=== PATIENT | male | born 1955 | race Caucasian/White ===

== ENCOUNTER 2023-07-13 11:03 | Outpatient (AMB) | payer BC, SELFPAY ==
--- NOTE | 2023-07-13 11:26 | MHC.OFFWIV ---
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 denies chills, body aches, fevers. Patient Tobacco Use Status: Former Tobacco user Allergies No Known Allergies Allergy (Verified 07/13/23 11:28) Do you need a note to return to daycare/school/sports/work: No HPI HPI Comments History of Present Illness Details 1150 This is a 68-year-old male presenting to the emergency department with complaints of fatigue, malaise, myalgias, dry cough ongoing for 2-3 weeks, not improving. Patient reports it just does not seem to be going away. Patient denies fevers, chills, chest pain, shortness of breath, nausea, vomiting, headache, vision changes, dizziness, abdominal pain, recent sick contacts. Physical exam benign Concerns for viral illness versus bronchitis. Unlikely PE, pneumonia no signs of acute respiratory distress or ACS Plan doxycycline, prednisone, albuterol. Educated patient on diagnosis and treatment plan, answered all question, patient verbalizes understanding. At this time patient will be discharged home, advised to return with new or worsening symptoms. Educated on worrisome signs and symptoms and when to return. At this time I feel comfortable discharge home. [facility] Social History Patient Tobacco Use Status: Former Tobacco user Review of Systems Const All systems reviewed & are unremarkable except as noted in HPI and below Physical Exam Vital Signs: Last Vital Signs Temp 97.6 F 07/13/23 11:27 Pulse 67 07/13/23 11:27 BP 122/82 07/13/23 11:27 Pulse Ox 97 07/13/23 11:27 Oxygen Delivery Method Room Air 07/13/23 11:27 BMI result Body Mass Index 40.6 Vital signs stable Appearance: Alert.? Oriented X3.? No acute distress.? Head: Normocephalic, atraumatic, no step-offs or deformities Eyes: Pupils equal, round and reactive to light.? Neck: Normal inspection.? Neck supple.? CVS: Normal heart rate and rhythm.? Pulses normal.? Respiratory: No respiratory distress.? Breath sounds normal.? Abdomen: Soft and nontender.? Skin: Skin warm and dry.? Normal skin color.? Normal skin turgor.? Extremities: No lower extremity edema.? No calf ttp. 5/5 strength to bilateral upper and lower extremities Neuro: Oriented X 3.? No motor deficit.? No sensory deficit. CN 2-12 intact Results AMB Rapid Strep AMB Rapid Strep Negative Last Edit by JACQUES Santana on 07/13/23 11:45 Results Reviewed Results Reviewed: Laboratory Last Values Strep Scn Rapid Clinic Negative 07/13/23 11:44 Assessment & Plan Assessment & Plan (1) Viral illness: Code(s): B34.9 - Viral infection, unspecified (2) Bronchitis: Code(s): J40 - Bronchitis, not specified as acute or chronic Plan Take your medications as prescribed. If you were prescribed antibiotics today, it is important that you take your medication to their entirety, do not skip any doses, do not finish them early. Follow-up with your primary care provider this week. Return to the emergency department with new or worsening symptoms. Such as fevers, chills, chest pain, shortness of breath, nausea, vomiting, dizziness, headache, vision changes, lethargy In case of emergency call 911 Orders: Orders AMB Rapid Strep Screen Today Z13.9 - Encounter for screening, unspecified Medications: New doxycycline hyclate 100 mg PO BID 14 caps 0RF 7 days prednisone 40 mg (2 x 20 mg) PO DAILY 10 tabs 0RF 5 days albuterol sulfate 90 mcg/actuation 2 puffs inhalation Q6H PRN 6.7 grams 0RF shortness of breath or wheezing Coding Level of Care Code Est Pt Level 3 (86488) Diagnoses Viral illness B34.9 Bronchitis J40
[2023-07-13 11:27] VITALS: BP 122/82; PULSE 67; TEMP 36.4; O2SAT 97; BMI 40.6
== END 2023-07-13 15:27 | disposition home or self-care (01) ==
PROVIDERS: PCP Family Medicine; Visit Provider Physician Assistant
DX: B34.9 Viral infection, unspecified (principal); J40 Bronchitis, not specified as acute or chronic; J02.9 Acute pharyngitis, unspecified
CPT/HCPCS: 87880; 99213

== ENCOUNTER 2024-09-29 09:53 | Outpatient (REF) | payer MEDICARE, SELFPAY ==
--- OUTSIDE RECORDS SUMMARY | 2024-09-29 10:46 | XMS_ITS | Patient Health Record ---
Author Organization [facility] Address [address] [facility] [place] [address] Care Team Providers Care Real Estate Director Name Role Phone Mukesh Rosas MD Primary Care Provider Rozina Deleon Unavailable [phone] Allergies Allergen (clinical drug ingredient) Drug/Non Drug Allergy documented on EMR Reaction Allergy Type Onset Date Status Adhesive Unknown Allergy Active Latex Latex Unknown Allergy Active Reason For Referral No Information Medications Medication SIG (Take, Route, Frequency, Duration) Notes Start Date End Date Status Physical Therapy . . . 2-3x/week for 3- 4 weeks 09/18/2023 Active Feldene 20 MG 1 capsule with food Orally Once a day for 30 day(s) 05/19/2023 Not-Taking Vitamin B-12 Injections Active Social History Tobacco Use: Social History Observation Description Date Details (start date - stop date) Former Smoker NA - NA Tobacco Use/Smoking Question Answer Notes Are you a: former smoker Additional Findings: Tobacco Non-User Current no n-smoker Alcohol Screen Question Answer Notes Did you have a drink contain ing alcohol in the past year? Yes How often did you have a dri nk containing alcohol in the past year? 2 to 3 times a week (3 points) Points 3 Interpretation Negative Tobacco use other than smoking: Question Answer Notes Are you an other tobacco user? No Problems Problem Type SNOMED Code ICD Code Onset Dates Problem Status W/U Status Risk Notes Problem Hammer toe (735.4) Active confirmed Encounters Encounter Location Date Provider Diagnosis [facility] [address] [place] [address] 11/18/2023 Rozina Stone [facility] [place] [address] [place] [address] 11/23/2023 Rozina Stone Plan Of Treatment Pending Test Test Name Order Date X ray : Foot, left 3V 12/26/2011 X ray : Foot, left 3V 05/19/2023 X ray : Foot, right 3V 05/19/2023 X ray : Foot, right 3V 12/26/2011 Insurance Providers Payer Name Payer Address Payer Phone Subscriber Number Group Number Insured Name Patient Relationship to Insured Coverage Start Date Coverage End Date [facility] [employer] [address] [place] [address] [phone] [id number] Louie Cortes Self - patient is the insured Medical (General) History Medical History History ICD Code Measles Mumps Chicken pox Cpap Sinus infection Surgical History Surgery Date(Month/Year) wisdom teeth extraction colonoscopy
--- OUTSIDE RECORDS SUMMARY | 2024-09-29 10:46 | XMS_ITS ---
Author Organization [facility] Address [address] [place] [address] Care Team Providers Care Brand Representative Name Role Phone Mukesh Rosas MD Primary Care Provider Unava ilable Rozina Stone Unavailable [phone] REASON FOR VISIT cx appt 12/03/23 Encounters Encounter Location Date Provider Diagnosis [facility] [place] [address] [facility] [place] [place] [address] 11/23/2023 Rozina Stone Plan Of Treatment No Information Progress Notes * Louie CORTES GDOB:1955 (68 yo M)Acc No.[id number]:11/23/2023 Patient:?Louie Cotres :1955???Age:68 Y???Sex:Male Address:[address] [facility], [facility] [place] [address] * true * Date:? Generated for Printi ng/Faxing/eTransmitting on:?09/29/2024 10:46 AM EDT
--- OUTSIDE RECORDS SUMMARY | 2024-09-29 10:46 | XMS_ITS ---
Author Organization [facility] Address [address] [facility] [place] [address] Care Team Providers Care Associate Chief Nurse Name Role Phone Ralph RIVERA, Mukesh Primary Care Provider Unava ilRozina Landaverde Unavailable [phone] Encounters Encounter Location Date Provider Diagnosis [address] [address] 11/30/2023 Rozina Stone Plan Of Treatment No Information Progress Notes * Louie CORTES GDOB:1955 (69 yo M)Acc No.[id number]:11/30/2023 Progress Note Patient:Louie BELLAMY Provider:?Rozina Stone DPM :1955???Age:68 Y???Sex:Male Alden e:11/30/2023 Address:[address] [place] [address], [facility] [id number] Pcp:Mukesh Rosas MD Subjective: * Chief Complaints: * ??? * Medical History:? Objective: * Vitals:? Assessment: Plan: * Treatment: * Images: * The named appointment provid er may or may not be the originator of this progress note, and it is not deemed complete until electronically signed by the appointment provider. Sign off status: Pending * Provider:?Rozina Stone DPM Date:? Generated for Printi marcus/Eliot/eTransmitting on:?09/29/2024 10:46 AM EDT
--- OUTSIDE RECORDS SUMMARY | 2024-09-29 10:46 | XMS_ITS ---
Author Organization [facility] Address [address] [place] [address] Care Team Providers Care Securities Compliance Examiner Name Role Phone Ralph RIVERA, Mukesh Primary Care Provider Unava ilRozina Landaverde Unavailable [phone] Encounters Encounter Location Date Provider Diagnosis [address] [address] 12/03/2023 Rozina Stone Plan Of Treatment No Information Progress Notes * Louie CORTES GDOB:1955 (69 yo M)Acc No.[id number]:12/03/2023 Progress Notes Patient:Louie BELLAMY Provider:?Rozina Stone DPM :1955???Age:68 Y???Sex:Male Alden e:12/03/2023 Address:[address] [place] [address], [facility] [phone] Pcp:Mukesh Rosas MD Subjective: * Chief Complaints: * ??? * Medical History:? Objective: * Vitals:? Assessment: Plan: * Treatment: * Images: * The named appointment provid er may or may not be the originator of this progress note, and it is not deemed complete until electronically signed by the appointment provider. Sign off status: Pending * Provider:?Rozina Stone DPM Date:? Generated for Josuei marcus/Eliot/eTransmitting on:?09/29/2024 10:46 AM EDT
== END 2024-09-29 09:54 | disposition home or self-care (01) ==
LOC: HO.BBR 09:53
PROVIDERS: PCP Family Medicine; Visit Provider Internal Medicine
DX: Z13.89 Encounter for screening for other disorder (principal)

== ENCOUNTER 2024-10-28 12:55 | Outpatient (REF) | payer MEDICARE, SELFPAY ==
--- OUTSIDE RECORDS SUMMARY | 2024-10-28 13:22 | XMS_ITS ---
Author Organization [facility] Address [address] [place] [address] Care Team Providers Care Deputy Sheriff Name Role Phone Ralph RIVERA, Mukesh Primary Care Provider Unava ilRozina Landaverde Unavailable [phone] Encounters Encounter Location Date Provider Diagnosis [address] [address] 12/03/2023 Rozina Stone Plan Of Treatment No Information Progress Notes * Louie CORTES GDOB:1955 (69 yo M)Acc No.[id number]:12/03/2023 Progress Notes Patient:Louie BELLAMY Provider:?Rozina Stone DPM :1955???Age:68 Y???Sex:Male Alden e:12/03/2023 Address:[address] [place] [address], [facility] [place] [id number] Pcp:Mukesh Rosas MD Subjective: * Chief Complaints: [...] Stone DPM Date:? Generated for Josuei marcus/Eliot/eTransmitting on:?10/28/2024 01:22 PM EDT
== END 2024-10-28 12:56 | disposition home or self-care (01) ==
LOC: HO.BBR 12:55
PROVIDERS: PCP Family Medicine; Visit Provider Internal Medicine
DX: Z13.89 Encounter for screening for other disorder (principal)

== ENCOUNTER 2024-11-25 10:55 | Outpatient (REF) | payer MEDICARE, SELFPAY ==
--- OUTSIDE RECORDS SUMMARY | 2023-12-03 07:30 | XMS_ITS ---
Author Organization [facility] paolo [place]err[place] Address [address] [facility] [place] [address] Care Team Providers Care Pathology Manager Name Role Phone Ralph RIVERA, Mukesh Primary Care Provider Unava ilRozina Landaverde Unavailable [phone] Encounters Encounter Location Date Provider Diagnosis [address] [address] 12/03/2023 Rozina Stone Plan Of Treatment No Information Progress Notes * Louie CORTES GDOB:1955 (69 yo M)Acc No.[id number]:12/03/2023 Progress Notes Patient: Louie LOPEZ Provider: Anthony Stone DPM :1955 A ge:68 Y S ex:Male Date:12/03/2023 Address:[address] [place] [address] [id number] Pcp:Mukesh Rosas MD Subjective: * Chief Complaints: * * Medical History: Objective: * Vitals: Assessment: Plan: * Treatment: * Images: * The named appointment provid er may or may not be the originator of this progress note, and it is not deemed complete until electronically signed by the appointment provider. Sign off status: Pending * Provider: Anthony Stone DPM Date: 12/03/2023 Generated for Jasmin velazquez/Eliot/Antransmitting on: 11/25/2024 11:33 AM EDT
== END 2024-11-25 10:56 | disposition home or self-care (01) ==
LOC: HO.BBR 10:55
PROVIDERS: PCP Family Medicine; Visit Provider Internal Medicine Medical Oncology
DX: Z13.89 Encounter for screening for other disorder (principal)

== ENCOUNTER 2025-01-18 10:50 | Outpatient (REF) | payer MEDICARE, SELFPAY ==
--- OUTSIDE RECORDS SUMMARY | 2023-11-13 08:00 | XMS_ITS ---
Author Organization [facility] Address [address] [facility] [place] [address] Care Team Providers Care Golf Teacher Name Role Phone Ralph RIVERA, Mukesh Primary Care Provider Unava ilable Rozina Stone Unavailable [phone] Fontenot Encounters Encounter Location Date Provider Diagnosis [facility] [address] [place] [address] 11/13/2023 Rozina Stone Plan Of Treatment No Information Progress Notes * Louie CORTES GDOB:1955 (69 yo M)Acc No.[id number]:11/13/2023 Progress Notes Patient: Louie LOPEZ Provider: Anthony Stone DPM :1955 A ge:68 Y S ex:Male Date:11/13/2023 Address:[address] [place] [address] [id number] Pcp:Mukesh Rosas MD Subjective: * Chief Complaints: [...] 0 11/13/2023 Generated for Jasmin velazquez/Eliot/Wandy on: 0 01/18/2025 12:47 PM EDT
--- OUTSIDE RECORDS SUMMARY | 2023-11-30 05:15 | XMS_ITS ---
Author Organization [facility] Address [address] [facility] [place] [place] [address] Care Team Providers Care Manager Documentation Name Role Phone Ralph RIVERA, Mukesh Primary Care Provider Unava ilRozina Landaverde Unavailable [phone] Encounters Encounter Location Date Provider Diagnosis [address] [address] 11/30/2023 Rozina Stone Plan Of Treatment No Information Progress Notes * Louie CORTES GDOB:1955 (69 yo M)Acc No.[id number]:11/30/2023 Progress Note Patient: Louie LOPEZ Provider: Anthony Stone DPM :1955 A ge:68 Y S ex:Male Date:11/30/2023 Address:[address] [place] [address] [id number] Pcp:Mukesh Rosas MD Subjective: * Chief Complaints: [...] 0 11/30/2023 Generated for Jasmin velazquez/Eliot/Antransmitting on: 0 01/18/2025 12:48 PM EDT
== END 2025-01-18 10:51 | disposition home or self-care (01) ==
LOC: HO.BBR 10:50
PROVIDERS: PCP Family Medicine; Visit Provider Internal Medicine Medical Oncology
DX: Z13.89 Encounter for screening for other disorder (principal)

== ENCOUNTER 2025-02-17 13:00 | Outpatient (REF) | payer MEDICARE, SELFPAY ==
--- OUTSIDE RECORDS SUMMARY | 2023-11-13 08:00 | XMS_ITS ---
Author Organization [facility] Address [address] [facility] [place] [address] Care Team Providers Care Market Research Specialist Name Role Phone Ralph RIVERA, Mukesh Primary Care Provider Unava ilable Rozina Stone Unavailable [phone] Fontenot Encounters Encounter Location Date Provider Diagnosis [facility] [address] [place] [address] 11/13/2023 Rozina Stone Plan Of Treatment No Information Progress Notes * Louie CORTES GDOB:1955 (69 yo M)Acc No.[id number]:11/13/2023 Progress Notes Patient: Louie LOPEZ Provider: Anthony Stone DPM :1955 A ge:68 Y S ex:Male Date:11/13/2023 Address:[address] [place] [address] [place] [id number] Pcp:Mukesh Rosas MD Subjective: * Chief Complaints: [...] DPM Date: 0 11/13/2023 Generated for Jasmin velazquez/Eliot/Wandy on: 1 01:22 PM EDT
--- OUTSIDE RECORDS SUMMARY | 2023-11-18 09:00 | XMS_ITS ---
Author Organization [facility] Address [address] [facility] [place] [address] Care Team Providers Care Hand Cigar Maker Name Role Phone Ralph RIVERA, Mukesh Primary Care Provider UnaRozina Brewster Unavailable [phone] Medications Medication SIG (Take, Route, Frequency, Duration) Notes Start Date End Date Status Physical Therapy . . . 2-3x/week; Durat ion: 3-4 weeks 09/18/2023 Active Feldene 20 MG 1 capsule with food Orally Once a day; Duration: 30 day(s) 05/19/2023 Not-Taking Vitamin B-12 Injections Active Encounters Encounter Location Date Provider Diagnosis [facility] [address] [place] [address] 11/18/2023 Rozina Stone Plan Of Treatment No Information Progress Notes * YOLETTE Louie GDOB:1955 (69 yo M)Acc No.[id number]:11/18/2023 Progress Notes Patient: Louie LOPEZ Provider: Anthony Stone DPM :1955 A ge:68 Y S ex:Male Date:11/18/2023 Address:[address] [place] [address], [phone] Pcp:Mukesh Rosas MD Subjective: [...] 0 11/18/2023 Generated for Jasmin velazquez/Eliot/Wandy on: 01:22 PM EDT
--- OUTSIDE RECORDS SUMMARY | 2023-11-30 05:15 | XMS_ITS ---
Author Organization [facility] [place] Address [address] [facility] [place] [address] Care Team Providers Care Lab Support Service Tech Name Role Phone Ralph RIVERA, Mukesh Primary Care Provider Unava ilRozina Landaverde Unavailable [phone] Encounters Encounter Location Date Provider Diagnosis [address] [address] 11/30/2023 Rozina Stone Plan Of Treatment No Information Progress Notes * oLuie CORTES GDOB:1955 (69 yo M)Acc No.[id number]:11/30/2023 Progress Note Patient: Louie LOPEZ Provider: Anthony Stone DPM :1955 A ge:68 Y S ex:Male Date:11/30/2023 Address:[address] [place] [address] [id number] Pcp:Mukesh Rosas MD Subjective: * Chief Complaints: [...] DPM Date: 0 11/30/2023 Generated for Jasmin velazquez/Eliot/eTransmitting on: 1 01:22 PM EDT
--- OUTSIDE RECORDS SUMMARY | 2023-12-03 07:30 | XMS_ITS ---
Author Organization [facility] pa[place] Address [address] [facility] [place] [address] Care Team Providers Care Physician Office Rep Name Role Phone Ralph RIVERA, Mukesh Primary Care Provider Unava ilRozina Landaverde Unavailable [phone] Encounters Encounter Location Date Provider Diagnosis [address] [address] 12/03/2023 Rozina Stone Plan Of Treatment No Information Progress Notes * Louie CORTES GDOB:1955 (69 yo M)Acc No.[id number]:12/03/2023 Progress Notes Patient: Louie LOPEZ Provider: Anthony Stone DPM :1955 A ge:68 Y S ex:Male Date:12/03/2023 Address:[address] [place] [address] [id number] Pcp:Mukesh Rosas MD Subjective: * Chief Complaints: [...] DPM Date: 0 12/03/2023 Generated for Jasmin velazquez/Eliot/eTransmitting on: 01:22 PM EDT
--- OUTSIDE RECORDS SUMMARY | 2025-02-17 13:23 | XMS_ITS | Patient Health Record ---
Author Organization [facility] Airam Serranoley Address [address] [place] [address] Care Team Providers Care Tractor Operator Helper Name Role Phone Mukesh Rosas MD Primary Care Provider UnaRozina Brewster Unavailable [phone] Allergies Allergen (clinical drug ingredient) Drug/Non Drug [...] W/U Status Risk Notes Problem Hammer toe (439724716) Hammer toe (735.4) Active confirmed Plan Of Treatment Pending Test Test Name Order Date X ray : Foot, left 3V 12/26/2011 X ray : Foot, left 3V 05/19/2023 X ray : Foot, right 3V 05/19/2023 X ray : Foot, right 3V 12/26/2011 Insurance Providers Payer Name Payer Address Payer Phone Subscriber Number Group Number Insured Name Patient Relationship to Insured Coverage Start Date Coverage End Date [facility] [id number] [place] [address] [phone] [id number] Louie Cortes Self - patient is the insured Medical (General) History Medical History History ICD Code Measles Mumps Chicken pox Cpap Sinus infection Surgical History Surgery Date(Month/Year) wisdom teeth extraction colonoscopy
== END 2025-02-17 13:01 | disposition home or self-care (01) ==
LOC: HO.BBR 13:00
PROVIDERS: PCP Family Medicine; Visit Provider Internal Medicine Medical Oncology
DX: Z12.39 Encounter for other screening for malignant neoplasm of breast (principal)

== ENCOUNTER 2025-03-24 09:58 | Outpatient (REF) | payer MEDICARE, SELFPAY ==
--- OUTSIDE RECORDS SUMMARY | 2023-11-13 07:00 | XMS_ITS ---
Author Organization [facility] Address [address] [facility] [place] [address] Care Team Providers Care Organ Builder Name Role Phone Ralph RIVERA, Mukesh Primary Care Provider Unava ilable Rozina Stone Unavailable [phone] Fontenot Encounters Encounter Location Date Provider Diagnosis [facility] [address] [place] [address] 11/13/2023 Rozina Stone Plan Of Treatment No Information Progress Notes * Louie CORTES GDOB:1955 (69 yo M)Acc No.[id number]:11/13/2023 Progress Notes Patient: Louie LOPEZ Provider: Anthony Stone DPM :1955 A ge:68 Y S ex:Male Date:11/13/2023 Address:[address] [place] [address] [place] [id number] Pcp:Mukesh Rosas MD Subjective: * Chief Complaints: * [address] Fontenot. * Medical History: Objective: * Vitals: Assessment: Plan: * Treatment: * Images: * The named appointment provid er may or may not be the originator of this progress note, and it is not deemed complete until electronically signed by the appointment provider. Sign off status: Pending * Provider: Anthony Stone DPM Date: 0 11/13/2023 Generated for Jasmin velazuqez/Eliot/Wandy on: 05/24/2024 11:49 AM EST
--- OUTSIDE RECORDS SUMMARY | 2023-11-18 08:00 | XMS_ITS ---
Author Organization [facility] Address [address] [facility] [place] [address] Care Team Providers Care Account Executive Healthcare Name Role Phone Ralph RIVERA, Mukesh Primary Care Provider UnaRozina Brewster Unavailable [phone] Medications Medication SIG (Take, Route, Frequency, Duration) Notes Start Date End Date Status Physical Therapy . . . 2-3x/week; Durat ion: 3-4 weeks 09/18/2023 Active Feldene 20 MG 1 capsule with food Orally Once a day; Duration: 30 day(s) 05/19/2023 Not-Taking Vitamin B-12 Injections Active Encounters Encounter Location Date Provider Diagnosis [facility] [address] [place] [address] 11/18/2023 Rozina Stone Plan Of Treatment No Information Progress Notes * YOLETTE Louie GDOB:1955 (69 yo M)Acc No.[id number]:11/18/2023 Progress Notes Patient: Louie LOPEZ Provider: Anthony Stone DPM :1955 A ge:68 Y S ex:Male Date:11/18/2023 Address:[address] [place] [address], [phone] Pcp:Mukesh Rosas MD Subjective: * Chief Complaints: * * Medical History: * Medications: T aking Vitamin B-12 , Notes to Pharmacist: Injections, Taking Physical Therapy . . . . 2-3x/week , Not-Taking/PRN Feldene 20 MG Capsule 1 capsule with food Orally Once a day Objective: * Vitals: Assessment: Plan: * Treatment: * Images: * The named appointment provid er may or may not be the originator of this progress note, and it is not deemed complete until electronically signed by the appointment provider. Sign off status: Pending * Provider: Anthony Stone DPM Date: 0 11/18/2023 Generated for Jasmin velazquez/Eliot/Wandy on: 05/24/2024 11:50 AM EST
--- OUTSIDE RECORDS SUMMARY | 2023-11-30 04:15 | XMS_ITS ---
Author Organization [facility] Address [address] [facility] [address] Care Team Providers Care Roll Edge Stitcher Hand Name Role Phone Ralph RIVERA, Mukesh Primary Care Provider Unava ilRozina Landaverde Unavailable [phone] Encounters Encounter Location Date Provider Diagnosis [address] [address] 11/30/2023 Rozina Stone Plan Of Treatment No Information Progress Notes * Louie CORTES GDOB:1955 (69 yo M)Acc No.[id number]:11/30/2023 Progress Note Patient: Louie LOPEZ Provider: Anthony Stone DPM :1955 A ge:68 Y S ex:Male Date:11/30/2023 Address:[address] [place] [address] [place] [id number] Pcp:Mukesh Rosas MD Subjective: * Chief Complaints: * * Medical History: Objective: * Vitals: Assessment: Plan: * Treatment: * Images: * The named appointment provid er may or may not be the originator of this progress note, and it is not deemed complete until electronically signed by the appointment provider. Sign off status: Pending * Provider: Anthony Stone DPM Date: 0 11/30/2023 Generated for Jasmin velazquez/Eliot/Antransmitting on: 1 05/24/2024 11:49 AM EST
--- OUTSIDE RECORDS SUMMARY | 2023-12-03 06:30 | XMS_ITS ---
Author Organization [facility] Address [address] [facility] [place] [address] Care Team Providers Care Bank Vault Clerk Name Role Phone Ralph RIVERA, Mukesh Primary Care Provider Unava ilRozina Landaverde Unavailable [phone] Encounters Encounter Location Date Provider Diagnosis [address] [address] 12/03/2023 Rozina Stone Plan Of Treatment No Information Progress Notes * Louie CORTES GDOB:1955 (69 yo M)Acc No.[id number]:12/03/2023 Progress Notes Patient: Louie LOPEZ Provider: Anthony Stone DPM :1955 A ge:68 Y S ex:Male Date:12/03/2023 Address:[address] [place] [address] [id number] Pcp:Mukesh Rosas MD Subjective: * Chief Complaints: * * Medical History: Objective: * Vitals: Assessment: Plan: * Treatment: * Images: * The named appointment provid er may or may not be the originator of this progress note, and it is not deemed complete until electronically signed by the appointment provider. Sign off status: Pending * Provider: Anthony Stone DPM Date: 0 12/03/2023 Generated for Jasmin velazquez/Eliot/Antransmitting on: 05/24/2024 11:49 AM EST
--- OUTSIDE RECORDS SUMMARY | 2025-03-24 11:50 | XMS_ITS | Patient Health Record ---
Author Organization [facility] Airam Serranoley Address [address] [place] [place] [address] Care Team Providers Care Ski Base Trimmer Name Role Phone Mukesh Rosas MD Primary Care Provider UnaRozina Brewster Unavailable [phone] Allergies Allergen (clinical drug ingredient) Drug/Non Drug [...] W/U Status Risk Notes Problem Hammer toe ([id number]) Hammer toe (735.4) Active confirmed Plan Of [...] Insured Coverage Start Date Coverage End Date [facility] [address] [place] [address] [phone] [id number] Louie Cortes Self - patient is the insured Medical (General) History Medical History History ICD Code Measles Mumps Chicken pox Cpap Sinus infection Surgical History Surgery Date(Month/Year) wisdom teeth extraction colonoscopy
== END 2025-03-24 09:59 | disposition home or self-care (01) ==
LOC: HO.BBR 09:58
PROVIDERS: PCP Family Medicine; Visit Provider Internal Medicine Medical Oncology
DX: Z13.89 Encounter for screening for other disorder (principal)